=== PATIENT | female | born 1955 | race Two or more races ===

== ENCOUNTER 2018-07-17 13:00 | Outpatient (AMBR) | payer MEDICAID, SELFPAY ==
--- NOTE | 2018-06-26 15:46 | PT.ODAYNRPT ---
PT Outpatient Daily Note Date of Service: June 26, 2018 OP Daily Note Visit Reasons: shoulder Outpatient Physical Therapy Treatment Date: 06/26/18 Subjective: pt reported having pain upon visit. pt states compliance with HEP. Objective: see flow sheet. Assessment: pt demonstrates fair-good ROM of the shoulder with overhead motion but tends to take her time with each rep due to pain or being guarded. pt is motivated to get better which casues her to push herself to increase ROM. did not see much tightness indicating good compliance with HEP. advised pt to continue with HEP and hot/ice pack if needed. Plan: continue POC per PT. Length of Time (minutes) of Treatment: 30 Minutes Office Procedures PT Procedures PT Date of Service: 06/26/18 Therapeutic Exercise 30 minutes: Yes
--- NOTE | 2018-06-30 14:46 | PT.ODAYNRPT ---
PT Outpatient Daily Note Date of Service: June 30, 2018 OP Daily Note Visit Reasons: shoulder Outpatient Physical Therapy Treatment Date: 06/30/18 Subjective: pt reported feeling a little sore after last visit but feeling better today. Objective: see flow sheet. Assessment: added new exercises in which pt had more discomfort with stretches than the strengthening exercises. pt maintained good posture during stretches. slight trunk rotation during ER/IR but corrected pt with demonstration and TCs. pt has fair ROM into IR but can improve with time as she had tolerable pain/discomfort. Plan: continue POC per PT. Length of Time (minutes) of Treatment: 30 Minutes Office Procedures PT Procedures PT Date of Service: 06/26/18 Therapeutic Exercise 30 minutes: Yes PT Procedures PT Date of Service: 06/30/18 Therapeutic Exercise 30 minutes: Yes
--- NOTE | 2018-06-30 14:50 | PTNOTE_ITS ---
PT Outpatient Daily Note Date of Service: June 30, 2018 OP Daily Note Visit Reasons: shoulder Outpatient Physical Therapy Treatment Date: 06/30/18 Subjective: pt reported feeling a little sore after last visit but feeling better today. Objective: see flow sheet. Assessment: added new exercises in which pt had more discomfort with stretches than the strengthening exercises. pt maintained good posture during stretches. slight trunk rotation during ER/IR but corrected pt with demonstration and TCs. pt has fair ROM into IR but can improve with time as she had tolerable pain/ discomfort. Plan: continue POC per PT. Length of Time (minutes) of Treatment: 30 Minutes Office Procedures PT Procedures PT Date of Service: 06/26/18 Therapeutic Exercise 30 minutes: Yes PT Procedures PT Date of Service: 06/30/18 Therapeutic Exercise 30 minutes: Yes
--- NOTE | 2018-07-03 14:09 | PT.ODAYNRPT ---
PT Outpatient Daily Note Date of Service: July 03, 2018 OP Daily Note Visit Reasons: shoulder Outpatient Physical Therapy Treatment Date: 07/03/18 Subjective: Pt stated that her shoulder pop and is afraid to use it because it hurts. Pt has been doing her exercises at home. Objective: Please see flow chart for list of ther ex performed Assessment: Pt demonstrate improvement with shoulder mobility; Pt's AROM is better compared to last few session. Pt's upper trape was tight from over use but with stretches decrease tigthness. Plan: Continue with PT Length of Time (minutes) of Treatment: 30 Minutes Office Procedures PT Procedures PT Date of Service: 06/26/18 Therapeutic Exercise 30 minutes: Yes PT Procedures PT Date of Service: 06/30/18 Therapeutic Exercise 30 minutes: Yes PT Procedures PT Date of Service: 07/03/18 Therapeutic Exercise 30 minutes: Yes
--- NOTE | 2018-07-07 14:37 | PT.ODAYNRPT ---
PT Outpatient Daily Note Date of Service: July 07, 2018 OP Daily Note Visit Reasons: shoulder Outpatient Physical Therapy Treatment Date: 07/07/18 Subjective: Pt's shoulder wasn't as sore compared to the first appt. Pt shoulder feels better today. Pt will still like the hot pack at the end of session. Objective: Please see flow chart for list of ther ex performed Assessment: cues to correct single arm row; tends to compensate with upper trape. today Pt demonstrate more AROM with less shoulder pain. Plan: Continue with PT Length of Time (minutes) of Treatment: 45 Minutes Office Procedures PT Procedures PT Date of Service: 06/26/18 Therapeutic Exercise 30 minutes: Yes PT Procedures PT Date of Service: 07/07/18 Therapeutic Exercise 45 minutes: Yes PT Procedures PT Date of Service: 06/30/18 Therapeutic Exercise 30 minutes: Yes PT Procedures PT Date of Service: 07/03/18 Therapeutic Exercise 45 minutes: Yes
--- NOTE | 2018-07-10 14:24 | PT.ODAYNRPT ---
PT Outpatient Daily Note Date of Service: July 10, 2018 OP Daily Note Visit Reasons: shoulder Outpatient Physical Therapy Treatment Date: 07/10/18 Subjective: Pt's shoulder feels much better. Pt will try the ice today on the shoulder. Objective: Please see flow chart for list of ther ex performd Assessment: continue to maintain good shoulder AROM from mid range towards end range. Pt still has difficulty with scaption exercise due to muscle fatigue Plan: Continue with PT Length of Time (minutes) of Treatment: 30 Minutes Office Procedures PT Procedures PT Date of Service: 06/26/18 Therapeutic Exercise 30 minutes: Yes PT Procedures PT Date of Service: 07/07/18 Therapeutic Exercise 45 minutes: Yes PT Procedures PT Date of Service: 06/30/18 Therapeutic Exercise 30 minutes: Yes PT Procedures PT Date of Service: 07/03/18 Therapeutic Exercise 45 minutes: Yes PT Procedures PT Date of Service: 07/10/18 Therapeutic Exercise 30 minutes: Yes
--- NOTE | 2018-07-14 14:02 | PT.ODAYNRPT ---
PT Outpatient Daily Note Date of Service: July 14, 2018 OP Daily Note Visit Reasons: shoulder Outpatient Physical Therapy Treatment Date: 07/14/18 Subjective: Pt's shoulder feels much better. Pt mention that she continues to notice improvement with shoulder movement. Objective: Please see flow chart for list of ther ex performed Assessment: tolerate exercises with minimal pain Plan: Continue with PT Length of Time (minutes) of Treatment: 30 Minutes Office Procedures PT Procedures PT Date of Service: 06/26/18 Therapeutic Exercise 30 minutes: Yes PT Procedures PT Date of Service: 07/07/18 Therapeutic Exercise 45 minutes: Yes PT Procedures PT Date of Service: 07/14/18 Therapeutic Exercise 30 minutes: Yes PT Procedures PT Date of Service: 06/30/18 Therapeutic Exercise 30 minutes: Yes PT Procedures PT Date of Service: 07/03/18 Therapeutic Exercise 45 minutes: Yes PT Procedures PT Date of Service: 07/10/18 Therapeutic Exercise 30 minutes: Yes
--- NOTE | 2018-07-17 14:16 | PT.ODAYNRPT ---
PT Outpatient Daily Note Date of Service: July 17, 2018 OP Daily Note Visit Reasons: shoulder Outpatient Physical Therapy Treatment Date: 07/17/18 Subjective: Pt's shoulder feels much better. Pt can reach high into covers with less pain. Objective: Please see flow chart for list of ther ex performed Assessment: added HBB stretch with good toleration. Pt continues to improve with shoulder AROM Plan: Continue with PT Length of Time (minutes) of Treatment: 30 Minutes Office Procedures PT Procedures PT Date of Service: 06/26/18 Therapeutic Exercise 30 minutes: Yes PT Procedures PT Date of Service: 07/07/18 Therapeutic Exercise 45 minutes: Yes PT Procedures PT Date of Service: 07/14/18 Therapeutic Exercise 30 minutes: Yes PT Procedures PT Date of Service: 07/17/18 Therapeutic Exercise 30 minutes: Yes PT Procedures PT Date of Service: 06/30/18 Therapeutic Exercise 30 minutes: Yes PT Procedures PT Date of Service: 07/03/18 Therapeutic Exercise 45 minutes: Yes PT Procedures PT Date of Service: 07/10/18 Therapeutic Exercise 30 minutes: Yes
== END 2018-07-17 14:59 | disposition home or self-care (01) ==
PROVIDERS: PCP Family Medicine; Referring Provider Family Medicine; Visit Provider Orthopaedic Surgery
DX: I10 Essential (primary) hypertension (principal)
CPT/HCPCS: 97110

== ENCOUNTER 2018-08-08 13:00 | Outpatient (AMBR) | payer MEDICAID, SELFPAY ==
--- NOTE | 2018-07-21 16:56 | PT.ODAYNRPT ---
PT Outpatient Daily Note Date of Service: July 21, 2018 OP Daily Note Visit Reasons: shoulder Outpatient Physical Therapy Treatment Date: 07/21/18 Subjective: Pt's shoulder is a little better. Pt still notice fatigue with excess use of the arm Objective: Please see flow chart for list of ther ex performed Assessment: tolerate exercises with minimal pain Plan: Continue with PT Length of Time (minutes) of Treatment: 30 Minutes Office Procedures PT Procedures PT Date of Service: 07/21/18 Therapeutic Exercise 30 minutes: Yes
--- NOTE | 2018-07-24 16:55 | PT.ODAYNRPT ---
PT Outpatient Daily Note Date of Service: July 24, 2018 OP Daily Note Visit Reasons: shoulder Outpatient Physical Therapy Treatment Date: 07/24/18 Subjective: Pt's shoulder feels good and stronger. Pt has been able to reach further behind her back Objective: Please see flow chart for list of ther ex performed Assessment: less fatigue with scaption exercise. improving with muscle endurance allowing her to perform exercise with less compensation Plan: Continue with PT Length of Time (minutes) of Treatment: 30 Minutes Office Procedures PT Procedures PT Date of Service: 07/21/18 Therapeutic Exercise 30 minutes: Yes PT Procedures PT Date of Service: 07/24/18 Therapeutic Exercise 30 minutes: Yes
--- NOTE | 2018-07-30 15:17 | PT.ODAYNRPT ---
PT Outpatient Daily Note Date of Service: July 30, 2018 OP Daily Note Visit Reasons: shoulder Outpatient Physical Therapy Treatment Date: 07/30/18 Subjective: Pt mention that her shoulder feels much better. Pt is now able to reach behind her back Objective: Please see flow chart for list of ther ex performed Assessment: tolerate exercises with minimal pain; reaching further behind her back with less shoulder pain Plan: Continue with PT Length of Time (minutes) of Treatment: 30 Minutes Office Procedures PT Procedures PT Date of Service: 07/21/18 Therapeutic Exercise 30 minutes: Yes PT Procedures PT Date of Service: 07/24/18 Therapeutic Exercise 30 minutes: Yes PT Procedures PT Date of Service: 07/30/18 Therapeutic Exercise 30 minutes: Yes
--- NOTE | 2018-08-01 14:01 | PT.ODAYNRPT ---
PT Outpatient Daily Note Date of Service: August 01, 2018 OP Daily Note Visit Reasons: shoulder Outpatient Physical Therapy Treatment Date: 08/01/18 Subjective: Pt's shoulder feels much better. Pt is able to reach further behind her back Objective: Please see flow chart for list of ther ex performed Assessment: tolerate exercises with minimal pain Plan: Continue with PT Length of Time (minutes) of Treatment: 30 Minutes Office Procedures PT Procedures PT Date of Service: 08/01/18 Therapeutic Exercise 30 minutes: Yes PT Procedures PT Date of Service: 07/21/18 Therapeutic Exercise 30 minutes: Yes PT Procedures PT Date of Service: 07/24/18 Therapeutic Exercise 30 minutes: Yes PT Procedures PT Date of Service: 07/30/18 Therapeutic Exercise 30 minutes: Yes
--- NOTE | 2018-08-08 13:20 | PT.ODS1RPT ---
PT OP Progress/Discharge Note Date of Service: August 08, 2018 Patient Information Visit Reasons: shoulder Medical Diagnosis: M75.101 Treatment Dx #1: Right Shoulder Mobility Deficits Treatment Dx #2: Right Shoulder Weakness Service Continue Service or Discharge: Continue Service Certification Date Certification Dates: 08/08/18 to 11/08/18 Status Subjective: Pt mention that her shoulder is doing well. Pt has been able to dress, groom, and performing light cooking around the house. Pt still has difficulty with overhead reaching and lifting due to weakness in the arm. Pt saw the surgeon today and he was satisfy with her result so far and recommends further PT. Objective: Right Shoulder AROM Flexion: 156 deg Abduction: 110 deg ER: 80 deg IR: 70 deg Right Shoulder PROM: all motions are WNL Right Shoulder MMTs: grossly 3/5 HBB: Thumb at T11 Assessment: Pt continues to improve with shoulder mobility and strength allowing her to resume light cooking, chores, and self care with less limitation. Pt still exhibit weakness within the rotator cuff leading to difficulty with overhead and lifting activities. Pt has not met set goals yet and will continue to benefit from PT, thank you for your referrals. Plan: Continue with PT/POC and add 12 sessions (2 x wk for 6 wks) Office Procedures PT Procedures PT Date of Service: 08/01/18 Therapeutic Exercise 30 minutes: Yes PT Procedures PT Date of Service: 07/21/18 Therapeutic Exercise 30 minutes: Yes PT Procedures PT Date of Service: 07/24/18 Therapeutic Exercise 30 minutes: Yes PT Procedures PT Date of Service: 07/30/18 Therapeutic Exercise 30 minutes: Yes PT Procedures PT Date of Service: 08/08/18 Therapeutic Exercise 30 minutes: Yes
== END 2018-08-20 23:59 | disposition home or self-care (01) ==
PROVIDERS: PCP Family Medicine; Referring Provider Family Medicine; Visit Provider Family Medicine
DX: M25.511 Pain in right shoulder (principal); R53.1 Weakness; M79.89 Other specified soft tissue disorders
CPT/HCPCS: 97110

== ENCOUNTER → 2024-09-22 | Outpatient (CLI) | payer MEDICARE, SELFPAY ==
--- NOTE | 2024-09-22 14:30 | XR_ITS ---
Examination: Bone densitometry Date and time of exam:September 22, 2024 1410 hours INDICATIONS: Menopause age 46 Technique: Lumbar spine and hip total bone mineralization values of an calculated. Peak reference and age match control results have been displayed. Findings: Lumbar spine total bone mineralization is0.945 gm/cm2. This is 0.9 standard deviations below peak reference. This is 1.0 standard deviations above age-matched controls. Hip total bone mineralization is 0.909 gm/cm2 This is 0.4 standard deviations below peak reference. This is 0.9 standard deviations above age-matched controls Impression: There is normal mineralization based on lumbar spine measurements. There is osteopenia based on hip measurements
== END | disposition home or self-care (01) ==
PROVIDERS: PCP Physician Assistant; Referring Provider Physician Assistant; Visit Provider Physician Assistant
DX: M85.80 Other specified disorders of bone density and structure, unspecified site (principal)
CPT/HCPCS: 77080

== ENCOUNTER 2024-09-24 07:15 | Day surgery (SDC) | payer MEDICARE, MEDICAID, SELFPAY ==
[2024-09-23 16:18] VITALS: BMI 33.4
[2024-09-24] VITALS (9 sets, daily range): BP systolic 133–183; BP diastolic 65–90; PULSE 60–67; RESP 13–19; TEMP 36.5–36.6; O2SAT 96–99; BMI 33.4
[2024-09-24] MEDS: LIDOCAINE JELLY 2% (Urojet) 10 ML TUBE TOP (08:02)
[2024-09-24] MEDS: DiphenhydrAMINE INJ 50 MG/ML VIAL 25 MG IV (08:22)
[2024-09-24] MEDS: MIDAZOLAM INJ 1 MG/ML VIAL 2 ML (ASD USE ONLY) 2 MG IV (08:26)
[2024-09-24] MEDS: fentaNYL CIT INJ 50 mCg/ML AMP 2ML (ASD USE ONLY) IV (08:26)
== END 2024-09-24 09:47 | disposition home or self-care (01) ==
PROVIDERS: PCP Physician Assistant; Referring Provider Surgery; Visit Provider Surgery
PROC: 0DBE8ZX Excision of Large Intestine, Via Natural or Artificial Opening Endoscopic, Diagnostic (ICD-10-PCS; CPT 45380; principal; 2024-09-24 08:00)
DX: K57.31 Diverticulosis of large intestine without perforation or abscess with bleeding (principal); K62.89 Other specified diseases of anus and rectum; D12.2 Benign neoplasm of ascending colon; K64.1 Second degree hemorrhoids; K64.4 Residual hemorrhoidal skin tags
CPT/HCPCS: 45385; J1200; J2250; J3010

== ENCOUNTER → 2024-12-31 | Outpatient (CLI) | payer MEDICARE, MEDICAID, SELFPAY ==
--- NOTE | 2024-12-31 07:27 | XR_ITS ---
Examination: Knee, left , 3 views Technique: Knee AP, lateral, oblique 3 views Date and time of exam: December 31, 2024, 6:25 AM Indications: Left knee pain beginning 2 years ago. Findings: Moderate to advanced tricompartment osteoarthritis, most severe medial and patellofemoral joints. No fracture. Small knee effusion Impression: Moderate to advanced tricompartment osteoarthritis
== END | disposition home or self-care (01) ==
LOC: CDIM 06:56
PROVIDERS: PCP Physician Assistant; Referring Provider Physician Assistant; Visit Provider Physician Assistant
DX: M17.12 Unilateral primary osteoarthritis, left knee (principal)
CPT/HCPCS: 73562

== ENCOUNTER → 2025-01-07 | Outpatient (CLI) | payer MEDICARE, MEDICAID, SELFPAY ==
[2025-01-07 11:31] LABS: Basophils % (Auto) 0 % (0-2.5); Eosinophils # (Auto) 0.2 Thou/mm3 (0.0-0.5); Eosinophils % (Auto) 4 % (0-10); Hematocrit 33.3 % (36.0-46.0); Hemoglobin 9.9 g/dL (12.0-16.0); Immature Granulocytes % (Auto) 0 % (0-0); Immature Granulocytes Auto 0.01 Thou/mm3 (0.00-0.00); Lymphocytes # (Auto) 1.2 Thou/mm3 (1.0-4.8); Lymphocytes % (Auto) 28 % (10-50); Mean Corpuscular HGB Conc 29.7 g/dl (31.0-37.0); Mean Corpuscular Hemoglobin 22.5 pg (25.0-35.0); Mean Corpuscular Volume 76 fL (80-100); Monocytes # (Auto) 0.4 Thou/mm3 (0.0-0.8); Monocytes % (Auto) 8 % (0-12); Neutrophils # (Auto) 2.7 Thou/mm3 (1.8-7.7); Neutrophils % (Auto) 60 % (37-80); Nucleated Red Blood Cell % 0 /100 WBC (0); Platelet Count 293 Thou/mm3 (140-440); White Blood Count 4.5 Thou/mm3 (3.6-11.0)
[2025-01-07 11:32] LABS: Partial Thromboplastin Time 29.6 Seconds (22.0-36.0); Prothrombin Time 11.4 Seconds (9.0-12.2)
[2025-01-07 11:44] LABS: Anion Gap 8 (7-16); BUN/Creatinine Ratio 18 Ratio (12-20); Blood Urea Nitrogen 18 mg/dL (9-23); Calcium 9.1 mg/dL (8.3-10.6); Chloride 103 mMol/L (98-107); Glucose 104 mg/dL (74-106); Osmolality,Calculated 283 (275-295); Potassium 4.1 mMol/L (3.4-5.1); Sodium 141 mMol/L (136-145); eGFR > 60 See Note
== END | disposition home or self-care (01) ==
PROVIDERS: PCP Internal Medicine; Referring Provider Internal Medicine; Visit Provider Internal Medicine
DX: I25.10 Atherosclerotic heart disease of native coronary artery without angina pectoris (principal); I48.91 Unspecified atrial fibrillation
CPT/HCPCS: 36415; 80048; 85025; 85610; 85730

== ENCOUNTER → 2025-02-05 | Outpatient (CLI) | payer MEDICARE, MEDICAID, SELFPAY ==
--- NOTE | 2025-02-05 11:11 | XR_ITS ---
Examination: PA lateral chest 2 views TECHNIQUE: Upright PA lateral chest 2 views Exam date and time: February 05, 2025 1151 hours INDICATIONS: Preop FINDINGS: Normal heart size Minimal scarring in the lingular segment No pneumonia or pulmonary edema Osteoporotic compression mid dorsal vertebral body IMPRESSION: No active disease
--- NOTE | 2025-02-05 11:13 | XR_ITS ---
Examination: Knee, left , 3 views Technique: Knee AP, lateral, oblique 3 views Date and time of exam: February 05, 2025 1201 hours INDICATIONS: Left knee pain years, diagnosis unilateral primary osteoarthritis left knee. FINDINGS: Moderate to advanced tricompartment osteoarthritis, including severe narrowing medial joint space No fracture or dislocation Small knee effusion IMPRESSION: Again noted moderate to advanced tricompartment osteoarthritis left knee compared with December 31, 2024, including severe narrowing medial joint space
[2025-02-05 13:11] LABS: Basophils % (Auto) 0 % (0-2.5); Eosinophils # (Auto) 0.1 Thou/mm3 (0.0-0.5); Eosinophils % (Auto) 3 % (0-10); Hematocrit 33.1 % (36.0-46.0); Hemoglobin 9.9 g/dL (12.0-16.0); Immature Granulocytes % (Auto) 0 % (0-0); Immature Granulocytes Auto 0.02 Thou/mm3 (0.00-0.00); Lymphocytes # (Auto) 1.6 Thou/mm3 (1.0-4.8); Lymphocytes % (Auto) 33 % (10-50); Mean Corpuscular HGB Conc 29.9 g/dl (31.0-37.0); Mean Corpuscular Hemoglobin 22.4 pg (25.0-35.0); Mean Corpuscular Volume 75 fL (80-100); Monocytes # (Auto) 0.4 Thou/mm3 (0.0-0.8); Monocytes % (Auto) 8 % (0-12); Neutrophils # (Auto) 2.6 Thou/mm3 (1.8-7.7); Neutrophils % (Auto) 55 % (37-80); Nucleated Red Blood Cell % 0 /100 WBC (0); Platelet Count 279 Thou/mm3 (140-440); RDW Standard Deviation 47.7 fL (36.4-46.3); Red Blood Count 4.42 Miln/mm3 (4.00-5.20); White Blood Count 4.8 Thou/mm3 (3.6-11.0)
[2025-02-05 13:16] LABS: Glucose Estimated Average 111 mg/dL (80-131); Hemoglobin A1C 5.5 % Hgb (4.8-6.0)
[2025-02-05 13:19] LABS: Albumin, Serum 4.2 gm/dL (3.4-4.8); Anion Gap 3 (7-16); BUN/Creatinine Ratio 16 Ratio (12-20); Blood Urea Nitrogen 14 mg/dL (9-23); Calcium 9.1 mg/dL (8.3-10.6); Carbon Dioxide 31.8 mMol/L (20.0-31.0); Chloride 107 mMol/L (98-107); Creatinine (Component) 0.9 mg/dL (0.6-1.3); Glucose 93 mg/dL (74-106); Osmolality,Calculated 283 (275-295); Potassium 4.2 mMol/L (3.4-5.1); Sodium 142 mMol/L (136-145); eGFR > 60 See Note
== END | disposition home or self-care (01) ==
LOC: CDIM 10:42 → COPL 12:16
PROVIDERS: PCP Physician Assistant; Referring Provider Physician Assistant; Visit Provider Radiology Diagnostic Radiology
DX: Z01.818 Encounter for other preprocedural examination (principal); M17.12 Unilateral primary osteoarthritis, left knee
CPT/HCPCS: 36415; 71046; 73562; 80048; 82040; 83036; 85025; 85610; 85730

== ENCOUNTER 2025-04-02 10:27 | Observation (INO) | payer MEDICARE, MEDICAID, SELFPAY ==
[2025-04-01 10:32] VITALS: BMI 34.3
[2025-04-01 11:44] LABS: Basophils % (Auto) 0 % (0-2.5); Eosinophils # (Auto) 0.2 Thou/mm3 (0.0-0.5); Eosinophils % (Auto) 4 % (0-10); Hematocrit 31.9 % (36.0-46.0); Hemoglobin 9.6 g/dL (12.0-16.0); Immature Granulocytes % (Auto) 0 % (0-0); Immature Granulocytes Auto 0.02 Thou/mm3 (0.00-0.00); Lymphocytes # (Auto) 1.7 Thou/mm3 (1.0-4.8); Lymphocytes % (Auto) 33 % (10-50); Mean Corpuscular HGB Conc 30.1 g/dl (31.0-37.0); Mean Corpuscular Hemoglobin 21.4 pg (25.0-35.0); Mean Corpuscular Volume 71 fL (80-100); Monocytes # (Auto) 0.4 Thou/mm3 (0.0-0.8); Monocytes % (Auto) 8 % (0-12); Neutrophils # (Auto) 2.8 Thou/mm3 (1.8-7.7); Neutrophils % (Auto) 55 % (37-80); Nucleated Red Blood Cell % 0 /100 WBC (0); Platelet Count 299 Thou/mm3 (140-440); RDW Standard Deviation 46.1 fL (36.4-46.3); Red Blood Count 4.48 Miln/mm3 (4.00-5.20); White Blood Count 5.1 Thou/mm3 (3.6-11.0)
[2025-04-01 11:52] LABS: Partial Thromboplastin Time 27.6 Seconds (22.0-36.0); Prothrombin Time 11.2 Seconds (9.0-12.2)
[2025-04-01 12:14] LABS: Alanine Aminotransferase 27 U/L (10-49); Albumin, Serum 4.3 gm/dL (3.4-4.8); Albumin/Globulin Ratio 1.8 (1.2-2.2); Alkaline Phosphatase 70 U/L (46-116); Anion Gap 8 (7-16); BUN/Creatinine Ratio 14 Ratio (12-20); Bilirubin,Total 0.6 mg/dL (0.3-1.2); Blood Urea Nitrogen 14 mg/dL (9-23); Calcium 8.9 mg/dL (8.3-10.6); Calcium (Corrected) 8.9 mg/dL (8.5-10.1); Carbon Dioxide 30.3 mMol/L (20.0-31.0); Chloride 105 mMol/L (98-107); Estimated Creatinine Clearance 63.1 mL/min (>60); Globulin 2.4 gm/dL (2.3-3.5); Glucose 92 mg/dL (74-106); Osmolality,Calculated 285 (275-295); Sodium 143 mMol/L (136-145); Total Protein 6.7 gm/dL (5.7-8.2); eGFR > 60 See Note
[2025-04-02] VITALS (18 sets, daily range): BP systolic 121–151; BP diastolic 62–74; PULSE 52–76; RESP 12–100; TEMP 36–36.6; O2SAT 96–100; BMI 35.2; BMI 13.0
--- NOTE | 2025-04-02 07:36 | SUR.PREOP ---
Patient expressed gratitude for prayer before their procedure.
--- NOTE | 2025-04-02 09:52 | XR_ITS ---
Examination: Knee, right , 3 views Technique: Knee AP, lateral, oblique 3 views Date and time of exam: April 02, 2025 1045 hours INDICATIONS: Postop knee arthroplasty FINDINGS: Total left knee arthroplasty. Satisfactory alignment No fracture IMPRESSION: Total left knee arthroplasty with satisfactory alignment
--- NOTE | 2025-04-02 09:53 | ESOP_ITS ---
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 Kaitlynn persona implant. Femur size 8 narrow Tibial baseplate size EE Polyethylene size 10 mm. CR. Patella size 26 mm Findings Patient had significant genu varus deformity. The medial femoral condyle and medial tibial plateau were mostly denuded of cartilage. There was significant osteophytes present as well. Procedure Description The patient was given a [spinal] anesthesia. Once satisfactory anesthesia was achieved a tourniquet was placed on left upper thigh. Intravenous antibiotics was given at the time of anesthesia. The patient was thoroughly prepped and draped. After using Esmarch the tourniquet pressure was raised to 350 mmHg. A skin incision was made 2 inches proximal to the upper pole of patella going as far down as up to the medial aspect of the tibial tuberosity. The skin was raised as a flap on the site. The bleeding vessels were electrocoagulated as and when encountered. The quadriceps tendon, medial border of the patella and the patellar tendon al darius the medial aspect of the tibial tuberosity was incised and reflected. The patellar tendon was reflected as much as needed to bianca the patella. The soft tissue from the upper medial border of the tibia was reflected to correct her genu varum deformity. The knee joint was flexed. The anterior cruciate ligament, medial and lateral meniscus were excised. Next para drill hole was made to the inferior surface of the femur. Following that a swab was placed. A 4?? of abduction was already put into it. Following that a cutting block for the inferior cut of the femur was placed and nicely secured with the pins. The swat was removed. The inferior cut of the femur was made and after that the cutting block was removed. Following that a sizer was placed. A decision was made to use size [8] femur implant. 2 drill holes each in 3?? of external rotation were made. The sizer was removed. Size [8] cutting block was placed. Following that anterior, posterior, anterior chamfer and posterior chamfer cuts were made. The cutting block was removed. The knee joint was extended and a 10 mm trial plastic was removed and the intended level of the tibial cut was marked. The knee joint was flexed. With the help of double-pronged the tibia was displaced anteriorly. An extramedullary jig for the cutting block placement of the tibia was placed. The mechanical axis of the zig was parallel to the mechanical axis of the tibia. Following that the tibial cutting block was placed at the desired level and was secured nicely with the help of pins. Following that the tibial cut was made. In this case was posterior cruciate ligament was saved. The cutting block was removed. The spacer was placed and a decision was made to use size [10] polyethylene. The sizing of the tibial baseplate was done and the decision was made to use size [E] tibial baseplate. Following that size [8] trial femur implant was placed in lateralized position and size [E] tibial tibial baseplate along with size [10] plastic was placed in knee joint was flexed and extended quite a few times and tibial baseplate was allowed to sit wherever it wanted to. The markings were made for the tibial baseplate. 2 drill holes were made for the inferior surface of the femur trial implant. The trial implant was removed and tibial baseplate was placed again with the help of pins. The collar was placed and superior hole was drilled. Following that a fin cut was made. The patella was reamed with [26] mm diameter reamer. [12] mm thickness was left. A collar was placed and 3 drill holes were made. All the trial implant was placed and patellar tracking was checked and found to be good. Lateral release was done at this point. The wound was irrigated with antibiotic solution every 4-5 minutes. Now the power lavage antibiotic solution was used. The knee joint was flexed. The bone were made dry. The cement was mixed. With the help of cement the tibial baseplate was mounted. The excess cement was removed. The femur implant was placed and trial plastic was placed and knee joint was extended. Patella was also mounted with the help of cementing. Excess cement was removed. Osteophytes from the patella was removed at this time. Once the cement was set the tourniquet pressure was released. The bleeding vessels were electrocoagulated. The trial plastic was removed and 10 mm CR ultra high molecular weight polyethylene was placed. Closure The quadriceps tendon was closed with 1 strata fix in continuous fashion. The subcu tissue and fascial layer was closed with the help of 2 strata fix in continuous fashion. Skin was closed with subcuticular absorbable suture The wound was cleaned with hydrogen proximal solution and a sterile dressing was applied. Patient tolerated procedure very well. Estimated blood loss [50] mL. Prognosis in this case is good. This was taken to the recovery room in good condition. Anesthesia GETA and other Pathology / specimen None Estimated Blood Loss 50 Surgeon Ferdinand Hamlin MD Surgical Staff Operation Date: 04/02/25 07:30 Case Staff Anesthesiologist: Chacorta Goel RNwood experimental mechanic: Viridiana Mcginnis
--- NOTE | 2025-04-02 10:30 | SUR.PHASEI ---
1005: Pt received in [facility] via hospital bed with trapeze attached. Report from Marlon COLVIN and Dr. Goel. Pt obtunded is arousable but unable to remain awake. Resp even, unlabored. VS stable. Dressing to left knee dry, clean, intact. Bilateral pedal pulses strong, regular. No c/o pain. 1030: Pt has been resting with no complaints voiced. Resp even, unlabored. VS stable. Dressing remains dry, clean, intact. Bilateral pedal pulses strong, regular.
[2025-04-02] MEDS: ACETAMINOPHEN INJ 1,000 MG/100 ML VIAL 1000 MG IV (11:15)
--- NOTE | 2025-04-02 11:15 | ESHP_ITS ---
RE: TARUN MORTON : 1955 DATE OF ADMISSION: 04/02/2025 The patient came to my office on 04/01/2025 for detailed preop history and physical examination. HISTORY OF PRESENT COMPLAINT: The patient presented to me with history of pain, swelling, and locking of the left knee joint. There is deformity. The patient graded intensity of pain to be 8-9/10. The patient is unable to sleep. Range of motion is painful. PAST MEDICAL HISTORY: The patient has a history of high blood pressure. No history of diabetes mellitus, asthma, seizure, chest pain, myocardial infarction, bleeding disorder or stroke. DRUG HISTORY: 1. The patient is on Eliquis, which she stopped taking on 03/28/2025. 2. Hydrochlorothiazide. 3. Rosuvastatin. ALLERGIES: NONE KNOWN. FAMILY HISTORY AND SOCIAL HISTORY: The patient denies smoking, drinking, is not working. PHYSICAL EXAMINATION: GENERAL: Normal built lady. VITAL SIGNS: Pulse 88 per minute and blood pressure 132/76 mmHg. NECK: Soft, supple. No mass felt. Trachea is centrally placed. CARDIOVASCULAR SYSTEM: First and second heart sounds normal. No murmur heard. RESPIRATORY: Bilateral vesicular breath sounds. CHEST: Clear. ABDOMEN: Soft. No mass felt. Bowel sounds present. BREASTS: Not indicated in this case. The patient is advised to see the family physician for examination. EXTREMITIES: Left knee examination revealed mild swelling. There is 2+ tenderness. Active range of motion 0 to 110 degrees of flexion. Patellofemoral crepitus is present. The patient walks with a limp. Neurovascularly, it is intact. DIAGNOSTIC DATA: X-ray of the left knee revealed significant osteoarthritic changes with decreased joint space on the medial compartment as well as the patellofemoral compartment. RECOMMENDATIONS: Since the patient is symptomatic, therefore, left total knee replacement was discussed and advised. Risks with anesthesia was explained and that includes, but not limited to reaction to anesthetic agents, cardiac arrest, and rarely, it might be fatal. Risks with operations include infection and if that happens, the patient may need further surgical pressure. Other risks include delayed healing, wound dehiscence, etc.. No guarantee is given regarding outcome of the procedure. Sometime, the patient may need blood transfusion and if that happens, the patient may be taking some risks. That includes a possible reaction to blood transfusion, possible infection with hepatitis B, C, HIV, etc.. The patient stated that should accept blood when it is absolutely necessary. The patient is cleared for surgical procedure. Surgery booked for 04/02/2025. DT: 10:01:43 TT: 10:48:00 Ref: [id number] - TID: [id number]
--- NOTE | 2025-04-02 11:19 | SUR.PHASEII ---
1048: Radiolgy here to take ordered x-rays of left knee. Pt tolerated procedure with no complaints voiced 1105: Pt resting. Resp even, unlabored. VS stable. Dressing remains dry, clean, intact. Bilateral pedal pulses strong, regular. Pt can move left foot and lift it off the bed approx 2-3 inches. Daughter at bedside. 1115: Pt having complaints of developing pain to left knee. Tylenol infusion started. 1123: at bedside. Pt tolerating ice chips with no difficulty swallowing and no n/v.
--- NOTE | 2025-04-02 14:58 | SUR.PHASEII ---
1300: Pt has been resting with no complaints voiced. VS stable, Dressing remains dry, clean, intact. Bilateral pedal pulses remain strong, regular. Denies pain. 1400: Pt continues to sleep off and on. Has voiced no complaints of pain, discomfort. VS stable. Daughter at bedside. 1410: Received room assignment. Attempted to call report. Nurse not available. 1450: Pt has been resting with no complaints voiced. VS stable. Dressing unchanged. Report to 3rd floor. Pt transferred to 364 in stable condition.
--- NOTE | 2025-04-02 15:46 | PD.ANESPROG ---
Documentation for date of: 04/02/25 ANESTHESIA NOTE: Patient had GETA and L femoral block for L TKA this morning. She did well intra-op and in PACU. Will defer further management to the floor team, including resuming her pre-op meds. Chacorta Goel MD Anesthesia Progress Note Progress Note Most recent Vital Signs: Last Vital Signs Temp 97.9 F 04/02/25 14:15 Pulse 55 L 04/02/25 14:15 Resp 15 04/02/25 14:15 BP 141/66 H 04/02/25 14:15 Pulse Ox 100 04/02/25 14:15 O2 Flow Rate 2 04/02/25 11:10
[2025-04-02] MEDS: ceFAZolin/D5W 1 GM IVPB 1 GM/50 ML BAG IV ×2 (16:42→22:07)
[2025-04-02] MEDS: MORPHINE SULF INJ 10 MG/ML VIAL 4 MG IVP (16:48)
[2025-04-03] VITALS: BP 130/57; PULSE 65; RESP 17; TEMP 36.1; O2SAT 130
[2025-04-03 04:00] VITALS: BP 122/58; PULSE 70; RESP 16; TEMP 36.2; O2SAT 97
[2025-04-03 06:18] LABS: Basophils % (Auto) 0 % (0-2.5); Eosinophils % (Auto) 0 % (0-10); Hematocrit 26.3 % (36.0-46.0); Immature Granulocytes % (Auto) 0 % (0-0); Immature Granulocytes Auto 0.04 Thou/mm3 (0.00-0.00); Lymphocytes # (Auto) 0.8 Thou/mm3 (1.0-4.8); Lymphocytes % (Auto) 6 % (10-50); Mean Corpuscular HGB Conc 30.4 g/dl (31.0-37.0); Mean Corpuscular Hemoglobin 21.4 pg (25.0-35.0); Mean Corpuscular Volume 70 fL (80-100); Monocytes # (Auto) 0.9 Thou/mm3 (0.0-0.8); Monocytes % (Auto) 7 % (0-12); Neutrophils # (Auto) 12.3 Thou/mm3 (1.8-7.7); Neutrophils % (Auto) 88 % (37-80); Nucleated Red Blood Cell % 0 /100 WBC (0); Platelet Count 255 Thou/mm3 (140-440); RDW Standard Deviation 45.8 fL (36.4-46.3); Red Blood Count 3.74 Miln/mm3 (4.00-5.20)
[2025-04-03 06:41] VITALS: PULSE 73; RESP 16; RESP 92
[2025-04-03 08:00] VITALS: BP 133/64; PULSE 82; RESP 16; TEMP 36.2; O2SAT 97
[2025-04-03] MEDS: MORPHINE SULF INJ 10 MG/ML VIAL 4 MG IVP ×3 (08:27→17:08)
--- NOTE | 2025-04-03 09:33 | PC.SS ---
Patient Kendal Dykes is a 69 Year old female admitted for LT TK REP. SS met with patient at bedside to discuss discharge plan and verify demographic information. Patient appeared to be alert and oriented. Patient reports she lives at home with her . Patient reports her surrogate decision maker is her daughter, Suki Claire, [phone]. Patient reports prior to admission she did not utilize any source of DME to assist with ambulation, patient is able to complete all ADL's independently. Choice of pharmacy is [facility], PCP is Maria Isabel Dailey. At time of discharge patient reports she will return back home family will provide transportation. Next of kin: Daughter, Suki Claire Discharge plan: Home
[2025-04-03 12:00] VITALS: BP 129/60; PULSE 88; RESP 18; TEMP 36.2; O2SAT 95
--- NOTE | 2025-04-03 15:40 | PC.SS ---
SS follow up note; Pending Surgery clearance, patient will discharge home when medically cleared.
[2025-04-03 16:00] VITALS: BP 149/70; PULSE 86; RESP 18; TEMP 36.2; O2SAT 95
== END 2025-04-03 18:09 | disposition home or self-care (01) ==
LOC: S3NX 14:50
PROVIDERS: Anesthesiology; Admitting Provider Orthopaedic Surgery; PCP Physician Assistant; Referring Provider Orthopaedic Surgery; Visit Provider Orthopaedic Surgery
PROC: (CPT 27447; principal; 2025-04-02 07:30)
DX: M17.12 Unilateral primary osteoarthritis, left knee (principal); M21.162 Varus deformity, not elsewhere classified, left knee; M25.762 Osteophyte, left knee
CPT/HCPCS: 27447; 36415; 73562; 80053; 85025; 85610; 85730; 86850; 86900; 86901; 86923; 96365; 96375; 96376; 97162; A4217; C1713; C1776; G0378; J0131; J0689; J0690; J1100; J1171; J1580; J2250; J2270; J2371; J2405; J2704; J2795; J3010; J3490; J1805

== ENCOUNTER → 2025-05-12 | Outpatient (CLI) | payer MEDICARE, MEDICAID, SELFPAY ==
[2025-05-12 17:58] LABS: Anion Gap 7 (7-16); BUN/Creatinine Ratio 14 Ratio (12-20); Blood Urea Nitrogen 11 mg/dL (9-23); Calcium 9.8 mg/dL (8.3-10.6); Carbon Dioxide 29.9 mMol/L (20.0-31.0); Chloride 102 mMol/L (98-107); Creatinine (Component) 0.8 mg/dL (0.6-1.3); Glucose 91 mg/dL (74-106); Osmolality,Calculated 276 (275-295); Potassium 3.7 mMol/L (3.4-5.1); Sodium 139 mMol/L (136-145); eGFR > 60 See Note
== END | disposition home or self-care (01) ==
LOC: COPL 16:16
PROVIDERS: PCP Physician Assistant; Referring Provider Internal Medicine; Visit Provider Internal Medicine
DX: I25.10 Atherosclerotic heart disease of native coronary artery without angina pectoris (principal); I48.91 Unspecified atrial fibrillation
CPT/HCPCS: 36415; 80048

== ENCOUNTER → 2025-05-14 | Outpatient (CLI) | payer MEDICARE, MEDICAID, SELFPAY ==
--- NOTE | 2025-05-14 10:52 | XR_ITS ---
Examination: CT chest with intravenous contrast 2-D sagittal and coronal reconstructions Exam date and time: May 14, 2025 1117 hours INDICATIONS: Intermittent chest pain shortness of breath beginning 3 months ago CTDI:vol (mGy) 13 DLP: (mGycm) 60 Technique: Multiple axial sections of the thorax have been obtained. Sections have been obtained, 3 mm slice thickness. Mediastinal and lung density settings have been obtained. Intravenous contrast administered, 60 cc Isovue-370. 2-D sagittal, coronal images obtained. Low dose protocols were performed. One or more of the following dose reduction techniques were used; automated exposure control, adjustment of the mA and/or KV according to patient size, use of iterative reconstruction technique. Findings: No thoracic aortic aneurysmal dilatation or dissection No pulmonary artery filling defects on this non-CTA study 2 mm pulmonary nodule right upper lobe image 113 3 mm pulmonary nodule left lower lobe image 239 No pneumonia or pulmonary edema No visualized liver or splenic lesion Suspicious for gallbladder sludge No pancreatic or adrenal mass IMPRESSION: Noncalcified pulmonary nodules as above, with this study as baseline suggest continued 6 month follow-up CT chest without contrast
== END | disposition home or self-care (01) ==
LOC: SCAT 10:40
PROVIDERS: PCP Physician Assistant; Referring Provider Internal Medicine; Visit Provider Internal Medicine
DX: R91.8 Other nonspecific abnormal finding of lung field (principal)
CPT/HCPCS: 71260; A4649; Q9967

== ENCOUNTER 2025-06-16 16:30 | Outpatient (RCR) | payer MEDICARE, MEDICAID, SELFPAY ==
--- NOTE | 2025-05-25 14:39 | PT.OIERPT ---
PT OP Initial Eval Patient Information Outpatient Physical Therapy Treatment Date: 05/25/25 Visit Reasons: TKR left Medical Diagnosis: Z96.652 Treatment Dx #1: L knee pain Treatment Dx #2: Decreased L knee ROM Start of Care: 05/25/25 Date of Onset: 04/02/25 Smoking Status Smoking Status: Never smoker Initial Assessment Subjective: Pt is 69 yr old guyanese speaking female s/p L TKA presents ambulating without assistive device and reports high pain level when she gets out of a chair or does exercises. Pain limits kneeling, squatting and prolonged walking. She reports swelling of the L knee. PLOF: pt was independent with functional mobility without assistive device prior to onset of L knee pain PMH: B TKA, B shoulder sx Pt goal: to get rid of the pain and swelling Objective: L knee AROM: Strength: Extension: -15 deg 4-/5 Flexion: 90 deg 4-/5 SLR: 40 deg Gait: antalgic Valgus stress: significant gapping ~5mm Assessment: Pt presentation consistent with post op L TKA with decreased ROM, strength ? and WB tolerance. Pt lacks knee extension and flexion which are limited by ? myofascial limitations and pain.? Pt requires skilled therapy to improve ROM ? and strength and has good rehab potential.? Eval followed by HEP with printout. Short Term and Custodial Goals 1. Independent with HEP 2. Improved knee ROM to full extension to 110 deg flexion 3. Improved quad and hamstring strength to 4+/5 4. Improved ambulatory tolerance to community distances with symmetrical ?? gait pattern.??? Treatment Plan 90 day POC 1. Manual therapy ? 2. Therex ? 3. Modalities as indicated, moist heat, ice, estim Frequency and Duration: 2x a week for 12 visits plus the evaluation Certification Dates: 05/25/25 to 08/23/25 Procedure Charges OP PT Eval Mod Complex 30 minutes: Yes
--- NOTE | 2025-05-31 16:39 | PT.ODAYNRPT ---
PT Outpatient Daily Note OP Daily Note Outpatient Physical Therapy Treatment Date: 05/31/25 Visit Reasons: TKR left Subjective: Doing HEP to extend the knee at home Objective: See F/S for therex MT: PROM into flexion x5' to end-range with overpressure Assessment: Good improvement with flexion PROM to about 100 deg with manual therapy. Plan: Continue per POC Length of Time (minutes) of Treatment: 30 Minutes Procedure Charges Therapeutic Exercise 30 minutes: Yes
--- NOTE | 2025-06-02 17:21 | PT.ODAYNRPT ---
PT Outpatient Daily Note OP Daily Note Outpatient Physical Therapy Treatment Date: 06/02/25 Visit Reasons: TKR left Subjective: Doing HEP to extend the knee at home Objective: See F/S for therex MT: PROM into flexion x5' to end-range with overpressure Assessment: Good improvement with flexion PROM to about 105 deg with manual therapy. Plan: Continue per POC Length of Time (minutes) of Treatment: 30 Minutes Procedure Charges Therapeutic Exercise 30 minutes: Yes
--- NOTE | 2025-06-07 18:07 | PT.ODAYNRPT ---
PT Outpatient Daily Note OP Daily Note Outpatient Physical Therapy Treatment Date: 06/07/25 Visit Reasons: TKR left Subjective: Doing HEP to extend the knee at home Objective: See F/S for therex MT: PROM into flexion x5' to end-range with overpressure Assessment: Good improvement with flexion PROM to about 105 deg with manual therapy. Gave TB for HEP. Plan: Continue per POC Length of Time (minutes) of Treatment: 30 Minutes Procedure Charges Therapeutic Exercise 30 minutes: Yes
--- NOTE | 2025-06-10 16:01 | PT.ODAYNRPT ---
PT Outpatient Daily Note OP Daily Note Outpatient Physical Therapy Treatment Date: 06/10/25 Visit Reasons: TKR left Subjective: Doing HEP to extend the knee at home Objective: See F/S for therex Assessment: Good improvement with flexion PROM to about 105 deg with manual therapy. Plan: Continue per POC Length of Time (minutes) of Treatment: 30 Minutes Procedure Charges Therapeutic Exercise 30 minutes: Yes
--- NOTE | 2025-06-14 17:29 | PT.ODAYNRPT ---
PT Outpatient Daily Note OP Daily Note Outpatient Physical Therapy Treatment Date: 06/14/25 Visit Reasons: TKR left Subjective: Doing HEP to extend the knee at home Objective: See F/S for therex MT: PROM into flexion x7' with overpressure Assessment: Good improvement with flexion PROM to about 107 deg with manual therapy. Plan: Continue per POC Length of Time (minutes) of Treatment: 30 Minutes Procedure Charges Therapeutic Exercise 30 minutes: Yes
--- NOTE | 2025-06-16 16:53 | PT.ODAYNRPT ---
PT Outpatient Daily Note OP Daily Note Outpatient Physical Therapy Treatment Date: 06/16/25 Visit Reasons: TKR left Subjective: Continued pain and swelling of L knee Objective: See F/S for therex Assessment: Good improvement with flexion PROM to about 107 deg with manual therapy. Lacking a few degrees of extension with gait. The knee looks edemic. Plan: Continue per POC Length of Time (minutes) of Treatment: 30 Minutes Procedure Charges Therapeutic Exercise 30 minutes: Yes
== END 2025-06-20 23:59 | disposition home or self-care (01) ==
LOC: CPTX 16:30
PROVIDERS: PCP Physician Assistant; Referring Provider Physician Assistant; Visit Provider Physician Assistant
DX: M25.562 Pain in left knee (principal); M25.462 Effusion, left knee; Z96.652 Presence of left artificial knee joint
CPT/HCPCS: 97110; 97162

== ENCOUNTER → 2025-06-23 | Outpatient (CLI) | payer MEDICARE, MEDICAID, SELFPAY ==
[2025-06-23 09:25] LABS: Basophils # (Auto) 0.0 Thou/mm3 (0.0-0.2); Basophils % (Auto) 0 % (0-2.5); Eosinophils # (Auto) 0.2 Thou/mm3 (0.0-0.5); Eosinophils % (Auto) 4 % (0-10); Hematocrit 31.1 % (36.0-46.0); Immature Granulocytes Auto 0.01 Thou/mm3 (0.00-0.00); Lymphocytes # (Auto) 0.9 Thou/mm3 (1.0-4.8); Lymphocytes % (Auto) 23 % (10-50); Mean Corpuscular HGB Conc 28.3 g/dl (31.0-37.0); Mean Corpuscular Hemoglobin 20.0 pg (25.0-35.0); Mean Corpuscular Volume 71 fL (80-100); Monocytes # (Auto) 0.3 Thou/mm3 (0.0-0.8); Monocytes % (Auto) 7 % (0-12); Neutrophils # (Auto) 2.7 Thou/mm3 (1.8-7.7); Neutrophils % (Auto) 65 % (37-80); Nucleated Red Blood Cell # 0.00 Thou/mm3 (0.00-0.00); Nucleated Red Blood Cell % 0 /100 WBC (0); Platelet Count 280 Thou/mm3 (140-440); RDW Standard Deviation 45.8 fL (36.4-46.3); Red Blood Count 4.41 Miln/mm3 (4.00-5.20); White Blood Count 4.1 Thou/mm3 (3.6-11.0)
[2025-06-23 09:37] LABS: Glucose Estimated Average 108 mg/dL (80-131); Hemoglobin A1C 5.4 % Hgb (4.8-6.0)
[2025-06-23 09:38] LABS: Hemoglobin 8.8 g/dL (12.0-16.0)
[2025-06-23 10:12] LABS: Alanine Aminotransferase 11 U/L (10-49); Albumin, Serum 4.1 gm/dL (3.4-4.8); Albumin/Globulin Ratio 1.7 (1.2-2.2); Alkaline Phosphatase 71 U/L (46-116); Anion Gap 9 (7-16); Aspartate Amino Transferase 20 U/L (0-34); BUN/Creatinine Ratio 18 Ratio (12-20); Bilirubin,Total 0.5 mg/dL (0.3-1.2); Blood Urea Nitrogen 14 mg/dL (9-23); Calcium 9.8 mg/dL (8.3-10.6); Calcium (Corrected) 9.8 mg/dL (8.5-10.1); Carbon Dioxide 29.4 mMol/L (20.0-31.0); Cardiac Risk Estimate 2.1 RATIO (3.7-5.6); Chloride 107 mMol/L (98-107); Cholesterol 102 mg/dL (132-200); Creatinine (Component) 0.8 mg/dL (0.6-1.3); Globulin 2.4 gm/dL (2.3-3.5); Glucose 83 mg/dL (74-106); HDL Cholesterol 48 mg/dL (40-60); Osmolality,Calculated 288 (275-295); Potassium 4.2 mMol/L (3.4-5.1); Sodium 145 mMol/L (136-145); Total Protein 6.5 gm/dL (5.7-8.2); eGFR > 60 See Note
[2025-06-23 10:15] LABS: LDL Cholesterol,Calculated 40 mg/dL (0-130); Triglycerides 70 mg/dL (30-150)
[2025-06-23 10:46] LABS: Creatinine MALB Rnd Ur 113 mg/dL (30-125); Microalbumin Creat Ratio 3 mg/gCrea (<30); Microalbumin, Random Urine 3 mg/L (0-300)
== END | disposition home or self-care (01) ==
LOC: COPL 08:27
PROVIDERS: PCP Internal Medicine; Referring Provider Physician Assistant; Visit Provider Physician Assistant
DX: Z00.00 Encounter for general adult medical examination without abnormal findings (principal); E66.3 Overweight; E78.2 Mixed hyperlipidemia
CPT/HCPCS: 36415; 80053; 80061; 82043; 82570; 83036; 85025

== ENCOUNTER 2025-06-28 16:00 | Outpatient (RCR) | payer MEDICARE, MEDICAID, SELFPAY ==
--- NOTE | 2025-06-25 15:58 | PT.ODAYNRPT ---
PT Outpatient Daily Note OP Daily Note Outpatient Physical Therapy Treatment Date: 06/25/25 Visit Reasons: TKR RT Subjective: Pt c/o stiff and painful knee. Objective: Please see flow sheet for ther ex list. Assessment: Pt ambulates with knee extension lag during heel strike, focus on improving squad strength and ROM of R knee. Plan: Continue with poC. Length of Time (minutes) of Treatment: 30 Minutes HAZARDOUS SUBSTANCES SCIENTIST Service Modifier Method I: Divide the number of min of care provided by the HAZARDOUS SUBSTANCES SCIENTIST/MARIANO by the total min of care provided then multiply by 100. If greater than 11 percent modifier is required. Method II: Divide the total time of care provided to patient by 10 (round to the nearest whole number) and add 1 min. to set the minimum time requirement. If treatment total was 60 min., then 10% of 6 min PT CQ modifier applied: CQ Modifier applied Procedure Charges Therapeutic Exercise 30 minutes: Yes
--- NOTE | 2025-06-28 16:54 | PT.ODAYNRPT ---
PT Outpatient Daily Note OP Daily Note Outpatient Physical Therapy Treatment Date: 06/28/25 Visit Reasons: TKR RT Subjective: Pt reports feeling tired today. Objective: Please see flow sheet for ther ex list. Assessment: Cues to avoid hip flexion during standing HS curls, pt complied. Plan: Continue with pOC. Length of Time (minutes) of Treatment: 30 Minutes Procedure Charges Therapeutic Exercise 30 minutes: Yes
--- NOTE | 2025-08-03 11:34 | PT.ODS1RPT ---
PT OP Progress/Discharge Note Date of Service: 08/03/25 Progress Note/DC Note Progress Note/Discharge Note: DC Note Patient Information Visit Reasons: TKR RT Service Continue Service or Discharge: Discharge Discharge Date: 08/03/25 Status Subjective: Pt called to say her insurance changed Objective: Pt wasn't reassessed since she canceled the last 2 Rx sessions. No Rx no charges Assessment: Pt attended the eval and 8 Rx sessions and then changed insurance so we will have to D/C this chart and start again with the new insurance. Plan: D/C
== END 2025-07-20 23:59 | disposition home or self-care (01) ==
LOC: CPTX 16:00
PROVIDERS: PCP Physician Assistant; Referring Provider Physician Assistant; Visit Provider Physician Assistant
DX: M25.562 Pain in left knee (principal); Z96.652 Presence of left artificial knee joint
CPT/HCPCS: 97110

== ENCOUNTER 2025-06-30 16:03 | Emergency (ER) | payer MEDICARE, MEDICAID, SELFPAY ==
[2025-06-30 16:47] VITALS: BP 152/78; PULSE 86; RESP 18; TEMP 37.2; O2SAT 95
--- NOTE | 2025-06-30 17:20 | XR_ITS ---
Examination: Knee, right , 3 views Technique: Knee AP, lateral, oblique 3 views Date and time of exam: June 30, 2025, 1759 hrs., Comparison April 02, 2025 Indications: Patient fell today with injury to the knee, knee pain. Findings: Prominent osteopenia. Total left knee arthroplasty with satisfactory alignment. No acute fracture. There is radiolucency about the prosthetic femoral component, consider loosening of the prosthetic component Large knee effusion Impression: No acute fracture. There is radiolucency about the prosthetic femoral component, consider loosening of the prosthetic femoral component, clinical correlation advised
--- NOTE | 2025-06-30 17:20 | XR_ITS ---
Examination: Forearm, left, 2 views. Technique: Forearm, AP, lateral 2 views Date and time of exam: 02 radiology thousand 25, 1745 hrs. Indications: Patient fell today with injury to the forearm, forearm pain. Findings: No acute fracture. No dislocation. No foreign body. Impression: No acute fracture.
--- NOTE | 2025-06-30 17:20 | XR_ITS ---
Examination: Thoracic spine 3 views Technique: AP lateral coned lateral upper dorsal spine 3 views Date and time: June 30, 2025, 1554 hrs. Indications: Patient fell today with injury to the back, mid back pain. Findings: Severe osteopenia. Severe chronic osteoporotic compression T8 vertebral body, noted on the CT chest study May 14, 2025 No acute thoracic fracture Mild diffuse thoracic degenerative disc disease Impression: No acute thoracic fracture
--- NOTE | 2025-06-30 17:22 | PD.EDRME ---
Rapid Medical Screening Exam RME Arrival date/time: 06/30/25 16:03 69-year-old female reports with multiple injuries after a fall Chief Complaint: Fall Time Seen by Provider: 06/30/25 16:46 Vital signs: Vital Signs Temperature 99 F 06/30/25 16:47 Pulse Rate 86 06/30/25 16:47 Respiratory Rate 18 06/30/25 16:47 Blood Pressure 152/78 H 06/30/25 16:47 Pulse Oximetry (%) 95 06/30/25 16:47 Oxygen Delivery Method Room Air 06/30/25 16:47
[2025-06-30] MEDS: KETOROLAC INJ 60 MG/2 ML VIAL 30 MG IM (18:58)
--- NOTE | 2025-06-30 19:38 | PD.EDFALL ---
ED Fall Injury RME/HPI General Chief Complaint: Fall Stated Complaint: FALL, HURT R) ARM/SHOULDER, L) KNEE, HIT HEAD Time Seen by Provider: 06/30/25 16:46 Arrival date/time: 06/30/25 16:03 RME / HPI RME / HPI Narrative: 69-year-old female reports with multiple injuries after a fall. Patient complaining of pain to the right shoulder, left knee and left forearm. Described as dull ache, severity moderate. Denies any LOC denies any head injury denies any neck pain. Patient is ambulatory. No medications taken prior to arrival. Incident happened earlier today. Currently not taking any Eliquis. Related Data Home Medications ?Medication ?Instructions ?Recorded ?Confirmed fluticasone propionate 50 1 spray intranasal QDAY PRN 11/10/19 04/02/25 mcg/actuation nasal Allergy Symptoms spray,suspension (Flonase Allergy Relief) hydrochlorothiazide 12.5 mg capsule 12.5 mg PO QDAY 08/08/24 04/02/25 calcium 500 mg tablet 500 mg PO DAILY 04/01/25 04/02/25 famotidine 40 mg tablet 40 mg PO HS 04/01/25 04/02/25 rosuvastatin 20 mg tablet 20 mg PO HS 04/01/25 04/02/25 Previous Rx's ?Medication ?Instructions ?Recorded apixaban 5 mg tablet (Eliquis) 5 mg PO BID 2 weeks #28 tabs 08/10/24 Held on 09/24/24. Instructions: Resume on 09/27/24. acetaminophen 300 mg-codeine 30 mg 1 tab PO TID PRN pain #20 tabs 06/30/25 tablet Allergies Allergy/AdvReac Type Severity Reaction Status Date / Time No Known Allergies Allergy Verified 06/30/25 16:10 Review of Systems Review of Systems Narrative Review of Systems: Review of system reviewed and within normal limits except mentioned in HPI ED Exam Narrative Physical exam: VITAL SIGNS: Reviewed. GENERAL APPEARANCE: Alert and interactive, follows commands, no acute distress, HEAD AND FACE: Non-traumatic. ENT: PERRL, pink conjunctivitis, eyelid no trauma, Mucous membrane moist. NECK: Supple, nontender, no nuchal rigidity. CHEST: No tenderness, no crepitus, no paradoxical movement, no retractions. LUNGS: Clear, well ventilated, symmetric, no rales, no wheezing, no ronchi, no stridor, good breath sounds bilaterally. HEART: Regular rate, regular rhythm, no murmur, no gallops. ABDOMEN: Soft, positive bowel sounds, nondistended, no guarding, nontender, no rebound, no masses, RECTAL: Deferred. GENITAL: Deferred. NEUROLOGICAL: Gross motor function intact sensory function intact, Appropriate for age. MUSCULOSKELETAL: low back nontender, full range of motion. EXTREMITIES: Right shoulder tenderness, left forearm tenderness, left knee tenderness, no deformity mild swelling, full range of motion. SKIN: Color pink, dry, no rash, no lacerations, no abrasions, no contusions. LYMPHATICS: Deferred. Course Quality Measures none Orders Category Date Time Status XR forearm LT 2V Stat Exams 06/30/25 17:20 Completed XR knee LT 3V Stat Exams 06/30/25 17:20 Completed XR thoracic spine 2V Stat Exams 06/30/25 17:20 Completed Ketorolac Inj [Toradol Inj] Med 06/30/25 17:50 Discontinued 30 mg IM X1 ONE Vital Signs Vital signs: Vital Signs Temperature 99 F 06/30/25 16:47 Pulse Rate 86 06/30/25 16:47 Respiratory Rate 18 06/30/25 16:47 Blood Pressure 152/78 H 06/30/25 16:47 Pulse Oximetry (%) 95 06/30/25 16:47 Oxygen Delivery Method Room Air 06/30/25 16:47 Fall MDM Narrative MDM Narrative:: 69-year-old female reports with multiple injuries after a fall. Patient complaining of pain to the right shoulder, left knee and left forearm. Described as dull ache, severity moderate. Denies any LOC denies any head injury denies any neck pain. Patient is ambulatory. No medications taken prior to arrival. Incident happened earlier today. Currently not taking any Eliquis. X-ray of the thoracic spine came back unremarkable. X-ray of the knee came back unremarkable x-ray of forearm came back unremarkable. Results discussed with the patient. Patient stable for discharge home. Patient received Toradol IM with significant proving of pain. Patient appears nontoxic and hemodynamically stable .Decision to discharge the patient. The patient/family was given an opportunity to ask questions and understood their discharge instructions. Discharge instructions specifically included follow up provider and time frame, current and/or new medications and possible side effects, indications for sooner follow up or return to the emergency department, and the expected course of current diagnosis. Patient reports feeling better as well and giving evidence of significant clinical improvement, I believe patient is now a candidate for discharge. Patient data External records reviewed:: None Clinical information provided by:: patient Social determinants that could affect healthcare access:: none Patient has the following chronic illnesses:: None How is presenting disease/condition affected by chronic disease/condition?: no chronic disease Evaluation data The following diagnostics were reviewed and interpreted by me:: radiology exam(s) Lab and/or radiology exams considered but not ordered:: None Interpretation Summary: See results MDM Medications / Prescriptions Medications or Prescriptions considered but not ordered:: None Medication administrations:: Medication Administration History Discontinued Medications Ketorolac Tromethamine (Ketorolac Inj 60 Mg/2 Ml Vial) 30 mg IM X1 ONE Stop: 06/30/25 17:51 Last Admin: 06/30/25 18:58 Dose: 30 mg Documented By: OA Toradol IM Consultations Consultation(s) initiated? (list below): No Diagnosis Fall Differential Diagnosis: other (Knee pain, forearm pain, forearm dislocation upper back pain) Most likely diagnosis given after review of the tests above:: Knee pain, forearm pain, status post fall Admission Indicated Admission indicated?: not indicated Admission Request Was there a request for admission?: No Disposition Plan Disposition Plan: Discharge Discharge Attestation Discharge Attestation: The patient and all family members were given an opportunity to ask questions and understood the discharge instructions. Discharge instructions specifically effects, indications for sooner follow up or return to the emergency department, and the expected course of current diagnosis. Patient condition: Stable Discharge Plan Plan Patient Disposition: HOME (Self Care) Discharge Disposition comment: Stable Prescriptions/Referrals Prescriptions/Med Rec: New acetaminophen-codeine 300-30 mg tablet 1 tab PO TID PRN (Reason: pain) Qty: 20 0RF No Action fluticasone propionate [Flonase Allergy Relief] 50 mcg/actuation [place],Suspension 1 spray INTRANASAL QDAY PRN (Reason: Allergy Symptoms) hydrochlorothiazide 12.5 mg capsule 12.5 mg PO QDAY Patient Comments: TAKE ONE CAPSULE BY MOUTH EVERY MORNING A DIURETIC Eliquis 5 mg Tablet 5 mg PO BID 14 Days Qty: 28 0RF rosuvastatin 20 mg tablet 20 mg PO HS Patient Comments: TAKE ONE TABLET BY MOUTH AT BEDTIME FOR CHOLESTEROL famotidine 40 mg tablet 40 mg PO HS Patient Comments: TAKE ONE TABLET BY MOUTH AT BEDTIME GASTRIC ACIDITY HEARTBURN calcium 500 mg tablet 500 mg PO DAILY Referrals: Maria Isabel Dailey PA-C [Primary Care Provider] - In 1 week Problem List Clinical Impression: Forearm pain, Knee pain, Fall Patient/Caregiver Discharge Instructions Discharge Activity: activity as tolerated Education Materials: Knee Pain Additional Instructions: Thank you for the opportunity for serving you today. You are stable for discharged . You are advised to: Follow-up with your PCP in 1 to 2 days Return to ED for worsening of symptoms Increase oral fluids Take medication as prescribed Print Language: Kyrgyz Stand Alone Forms: Danni Award Info., Patient Portal Info Letter ADEEL/NEVA Supervising Physician ADEEL/NEVA Supervising Physician: MD Sara
[2025-06-30 20:09] VITALS: BP 135/76; PULSE 70; RESP 16; TEMP 36.7; O2SAT 98
== END 2025-06-30 20:18 | disposition home or self-care (01) ==
PROVIDERS: Emergency Provider Emergency Medicine; PCP Physician Assistant
DX: S59.912A Unspecified injury of left forearm, initial encounter (principal); S29.9XXA Unspecified injury of thorax, initial encounter; S89.92XA Unspecified injury of left lower leg, initial encounter; W19.XXXA Unspecified fall, initial encounter
CPT/HCPCS: 72070; 72072; 73090; 73562; 96372; 99283; J1885

== ENCOUNTER → 2025-07-06 | Outpatient (CLI) | payer MEDICARE, SELFPAY ==
--- NOTE | 2025-07-06 11:00 | XR_ITS ---
Examination: Screening digital mammography, bilateral Computer aided detection 3-D breast Tomosynthesis, bilateral Date and time of exam: July 06, 2025 1040 hours, compared to mammograms dating to March 20, 2012 Indication: Screening Technique: Nonmagnified MLO, CC views of the breasts to been obtained, reconstructed from 3-D Tomosynthesis images. R2 computer aided detection program utilized for evaluation of suspicious masses and/or abnormal calcifications. 3-D Tomosynthesis images obtained. Findings: Scattered areas of fibroglandular density. Benign calcifications. No interval suspicious masses Impression: BI-RADS category II: Benign Findings. Recommend 1 year follow-up mammogram.
== END | disposition home or self-care (01) ==
PROVIDERS: Referring Provider Physician Assistant; Visit Provider Physician Assistant
DX: Z12.31 Encounter for screening mammogram for malignant neoplasm of breast (principal); R92.323 Mammographic fibroglandular density, bilateral breasts; R92.1 Mammographic calcification found on diagnostic imaging of breast
CPT/HCPCS: 77063; 77067

== ENCOUNTER → 2025-07-16 | Outpatient (CLI) | payer MEDICARE, MEDICAID, SELFPAY ==
--- NOTE | 2025-07-16 09:19 | XR_ITS ---
Examination: Forearm, right, 2 views. Technique: Forearm, AP, lateral 2 views Date and time of exam: July 16, 2025 0925 hours INDICATIONS: Patient fell May 28, 2025 with into the forearm, forearm pain. FINDINGS: Severe osteopenia Suspicious for nondisplaced fracture distal radius No foreign body IMPRESSION: Suspicious for nondisplaced fracture distal radius
--- NOTE | 2025-07-16 09:20 | XR_ITS ---
Examination: Right wrist 2 views Technique one AP lateral right wrist 2 views Date and time: July 16, 2025 0933 hours INDICATIONS: Patient fell likely 2024, injury to the wrist, wrist pain. FINDINGS: Fractures of the dorsal distal surface of the radius noted on the lateral view Carpal bones intact IMPRESSION: Recommend CT scan wrist without contrast follow-up to confirm nondisplaced fractures distal radial metaphysis
== END | disposition home or self-care (01) ==
PROVIDERS: PCP Physician Assistant; Referring Provider Physician Assistant; Visit Provider Physician Assistant
DX: S59.911A Unspecified injury of right forearm, initial encounter (principal); S69.91XA Unspecified injury of right wrist, hand and finger(s), initial encounter; W19.XXXA Unspecified fall, initial encounter
CPT/HCPCS: 73090; 73100

== ENCOUNTER → 2025-07-26 | Outpatient (CLI) | payer MEDICARE, MEDICAID, SELFPAY ==
--- NOTE | 2025-07-26 14:30 | XR_ITS ---
Examination: Retroperitoneal ultrasound, complete Technique: Multiple high resolution grayscale images of the retroperitoneum obtained, including kidneys and bladder. 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
== END | disposition home or self-care (01) ==
PROVIDERS: PCP Physician Assistant; Referring Provider Surgery; Visit Provider Surgery
DX: N20.0 Calculus of kidney (principal)
CPT/HCPCS: 76770

== ENCOUNTER → 2025-08-11 | Outpatient (CLI) | payer MEDICARE, MEDICAID, SELFPAY ==
--- NOTE | 2025-08-11 10:07 | XR_ITS ---
Examination: Knee, left, 3 views Technique: Knee AP, lateral, oblique 3 views Date and time of exam: August 11, 2025, 1017 hours INDICATIONS: Status post left knee replacement in March 2025, comparison 06/30/2025 FINDINGS: Total left knee arthroplasty. Satisfactory alignment. No fracture. No loosening of the prosthetic components. Small knee effusion IMPRESSION: Total left knee arthroplasty with satisfactory alignment
== END | disposition home or self-care (01) ==
LOC: CDIM 09:43
PROVIDERS: PCP Physician Assistant; Referring Provider Orthopaedic Surgery; Visit Provider Orthopaedic Surgery
DX: M25.562 Pain in left knee (principal); Z96.652 Presence of left artificial knee joint
CPT/HCPCS: 73562

== ENCOUNTER → 2025-08-25 | Outpatient (CLI) | payer MEDICARE, MEDICAID, SELFPAY ==
--- NOTE | 2025-08-25 14:30 | XR_ITS ---
Examination: CT abdomen and pelvis without contrast. Coronal 3-D reconstructions. Sagittal 2-D reconstructions. Date and time of exam: August 25, 2025, 1438 hours, comparison August 17, 2024 INDICATIONS: Right flank pain 2 months, history kidney cysts CTDI: vol (mGy): 9.51 DLP: (mGycm): 540 Technique: Axial images of the abdomen have been obtained, 3 mm slice thickness Intravenous contrast material has not been administered. Low dose protocols were performed. One or more of the following dose reduction techniques were used; automated exposure control, adjustment of the mA and/or KV according to patient size, use of iterative reconstruction technique. Findings: No focal liver or splenic lesions No gallstones No pancreatic or adrenal mass 2 mm lower pole left renal calculus Lower pole 5.4 cm right renal cyst No bowel obstruction Absent appendix No diverticulitis Atrophic uterus No bladder mass or bladder calculi Severe osteopenia with chronic osteoporotic compressions L4, L3 IMPRESSION: 2 mm lower pole nonobstructing left renal calculus 5.4 cm lower pole right renal cyst, amenable to CT-guided percutaneous aspiration
== END | disposition home or self-care (01) ==
LOC: CCTX 14:05
PROVIDERS: PCP Physician Assistant; Referring Provider Surgery; Visit Provider Surgery
DX: N28.1 Cyst of kidney, acquired (principal); N20.0 Calculus of kidney
CPT/HCPCS: 74176

== ENCOUNTER 2025-09-29 14:30 | Outpatient (RCR) | payer MEDICARE, MEDICAID, SELFPAY ==
--- NOTE | 2025-09-27 13:40 | PT.OIERPT ---
PT OP Initial Eval Patient Information Outpatient Physical Therapy Treatment Date: 09/27/25 Visit Reasons: left knee pain Medical Diagnosis: M25.562 Treatment Dx #1: L knee pain Treatment Dx #2: Dec L knee ROM Start of Care: 09/27/25 Date of Onset: 04/02/25 Smoking Status Smoking Status: Never smoker Initial Assessment Subjective: Pt is 70 yr old [place]embour[place] speaking female s/p L TKA presents ambulating without assistive device and reports high pain level when she gets out of a chair or does exercises. Pain limits kneeling, squatting and prolonged walking. She reports swelling of the L knee. PLOF: pt was independent with functional mobility without assistive device prior to onset of L knee pain PMH: B TKA, B shoulder sx Pt goal: to get rid of the pain and swelling Objective: L knee AROM: Strength: Extension: -3 deg 4-/5 Flexion: 100 deg 4-/5 SLR: 70 deg Gait: antalgic Valgus stress: significant gapping ~5mm Assessment: Pt presentation consistent with post op L TKA with decreased ROM, strength ? and WB tolerance. Pt lacks knee extension and flexion which are limited by ? myofascial limitations and pain.? Pt requires skilled therapy to improve ROM ? and strength and has good rehab potential.? Eval followed by HEP with printout. Short Term and Care Home Goals 1. Independent with HEP 2. Improved knee ROM to full extension to 110 deg flexion 3. Improved quad and hamstring strength to 4/5 4. Improved ambulatory tolerance to community distances with symmetrical ?? gait pattern.??? Treatment Plan 90 day POC 1. Manual therapy ? 2. Therex ? 3. Modalities as indicated, moist heat, ice, estim Frequency and Duration: 2x a week for 12 visits plus the evaluation Certification Dates: 09/27/25 to 12/26/25 Procedure Charges OP PT Eval Mod Complex 30 minutes: Yes
--- NOTE | 2025-09-29 16:28 | PT.ODAYNRPT ---
PT Outpatient Daily Note OP Daily Note Outpatient Physical Therapy Treatment Date: 09/29/25 Visit Reasons: left knee pain Subjective: Same as time of evaluation Objective: See f/S for therex Assessment: Pt able to do partial body weight squats and lunges with moderate tissue irritability of L knee Plan: Continue per POC Length of Time (minutes) of Treatment: 30 Minutes Procedure Charges Therapeutic Exercise 30 minutes: Yes
== END 2025-10-20 23:59 | disposition home or self-care (01) ==
LOC: CPTX 14:30
PROVIDERS: PCP Orthopaedic Surgery; Referring Provider Orthopaedic Surgery; Visit Provider Orthopaedic Surgery
DX: Z47.1 Aftercare following joint replacement surgery (principal); Z96.652 Presence of left artificial knee joint; M25.562 Pain in left knee; M25.462 Effusion, left knee
CPT/HCPCS: 97110; 97162